=== PATIENT | female | born 1980 | race Caucasian/White ===

== ENCOUNTER → 2017-11-16 | Outpatient (CLI) | payer BC ==
[~2017-11-16] MED LIST: PHEN8TAB; SEASONAL
--- NOTE | 2017-11-16 17:00 | Diagnostic Imaging Report ---
INDICATION: Left knee pain. AP, oblique, and lateral views of the left knee are obtained. No fracture or acute bony abnormality is seen. There is no significant degenerative change. IMPRESSION: Negative left knee. Dictated by: Dictated on workstation # [id number]
== END ==
LOC: RAD 16:22
PROVIDERS: ATTEND Internal Medicine
DX: M25.562 Pain in left knee (principal)
CPT/HCPCS: 73562

== ENCOUNTER → 2017-11-29 | Outpatient (CLI) | payer BC ==
--- NOTE | 2017-11-29 10:37 | Diagnostic Imaging Report ---
PROCEDURE: MRI left joint lower extremity without contrast. TECHNIQUE: Multiplanar, multisequence MR imaging of the left knee was performed without contrast. COMPARISON: Left knee radiographs of 11/16/2017 INDICATION: Knee pain. FINDINGS: MENISCI Medial meniscus: Normal. Lateral meniscus: Normal. LIGAMENTS ACL: The anteromedial bundle of the ACL is discontinuous in its mid aspect. A few of the posterolateral bundle fibers remain intact. These features are compatible with a partial thickness ACL tear. PCL: Mild thickening of the proximal PCL, which remains intact. MCL: Intact. LCL: The lateral collateral ligamentous complex is intact. EXTENSOR MECHANISM The extensor mechanism is intact. CARTILAGE Medial compartment: Medial compartment articular cartilage is well preserved without focal high-grade chondromalacia. Lateral compartment: The lateral compartment articular cartilage is preserved without high-grade chondromalacia. Patellofemoral compartment: Full-thickness chondral fissuring with partial-thickness delamination at the level of the patellar apex. The medial patella facet has multifocal high-grade partial-thickness chondral loss and fissuring as well. Femoral trochlear cartilage is preserved. BONE No fracture, stress fracture or osteonecrosis. SOFT TISSUE No knee effusion or Xiong's cyst. IMPRESSION: 1. Partial-thickness ACL tear. Clinical correlation for ACL integrity is advised. 2. Multifocal partial and full-thickness chondral fissuring of the patellar apex and medial patellar facet. There is a small focus of chondral delamination at the level of the patellar apex as well. Remainder of the articular cartilage is preserved. 3. No meniscal tear. Dictated by: Dictated on workstation # [id number]
== END ==
LOC: RAD 09:22
PROVIDERS: ATTEND Internal Medicine
DX: S83.512A Sprain of anterior cruciate ligament of left knee, initial encounter (principal); S83.242A Other tear of medial meniscus, current injury, left knee, initial encounter; M94.8X8 Other specified disorders of cartilage, other site
CPT/HCPCS: 73721

== ENCOUNTER 2018-02-02 20:24 | Emergency (ER) | payer BC ==
[~2018-02-02] VITALS: Ht 165.1 cm; Wt 90.7 kg
--- OUTSIDE RECORDS SUMMARY | 2018-02-02 20:30 | XMS REPORT | Continuity of Care Document ---
Author Author [facility] Organization [facility] Address Unknown Phone Unavailable Allergies Active Description Code Type Severity Reaction Onset Reported/Identified Relationship to Patient Clinical Status Yes No Known Drug Allergies [id number] Drug Allergy Mild N/A 02/04/2009 Medications There is no data. Problems Date Dx Coded Attending Type Code Diagnosis Diagnosed By 09/13/2014 Ot 368.8 09/13/2014 Ot 473.9 10/08/2014 Ot 368.8 10/08/2014 Ot 473.9 10/08/2014 RAYRAY OLIVEIRA MD Ot 785.6 10/08/2014 RAYRAY OLIVEIRA MD Ot 785.6 11/16/2017 RAYRAY OLIVEIRA MD Ot 785.6 ENLARGEMENT LYMPH NODES 11/17/2017 RAMESH CALZADA DO Ot M25.562 PAIN IN LEFT KNEE 11/30/2017 RAMESH CALZADA DO Ot M94.8X8 OTHER SPECIFIED DISORDERS OF CARTILAGE, 11/30/2017 RAMESH CALZADA DO Ot S83.242A OTH TEAR OF MEDIAL MENISCUS, CURRENT INJ 11/30/2017 RAMESH CALZADA DO Ot S83.512A SPRAIN OF ANTERIOR CRUCIATE LIGAMENT OF 12/06/2017 RAMESH CALZADA DO Ot M25.562 PAIN IN LEFT KNEE 12/10/2017 Ot 368.8 VISUAL DISTURBANCES NEC 12/10/2017 Ot 473.9 CHRONIC SINUSITIS NOS 12/10/2017 RAYRAY OLIVEIRA MD Ot 785.6 ENLARGEMENT LYMPH NODES 12/10/2017 RAMESH CALZADA DO Ot M25.562 PAIN IN LEFT KNEE 12/10/2017 RAMESH CALZADA DO Ot M94.8X8 OTHER SPECIFIED DISORDERS OF CARTILAGE, 12/10/2017 RAMESH CALZADA DO Ot S83.242A OTH TEAR OF MEDIAL MENISCUS, CURRENT INJ 12/10/2017 RAMESH CALZADA DO Ot S83.512A SPRAIN OF ANTERIOR CRUCIATE LIGAMENT OF 12/15/2017 RAMESH CALZADA DO Ot M94.8X8 OTHER SPECIFIED DISORDERS OF CARTILAGE, 12/15/2017 RAMESH CALZADA DO Ot S83.242A OTH TEAR OF MEDIAL MENISCUS, CURRENT INJ 12/15/2017 CALZADAADALBERTO CLINE RAMESH Brett Ot S83.512A SPRAIN OF ANTERIOR CRUCIATE LIGAMENT OF Procedures Code Description Performed By Performed On 51.23 LAPAROSCOPIC CHOLECYSTECTOMY 02/06/2009 Results There is no data. Encounters ACCT No. Visit Date/Time Discharge Status Pt. Type Provider Facility Loc./Unit Complaint [id number] 11/29/2017 09:22:00 11/29/2017 23:59:59 CLS Outpatient RAMESH CALZADA DO [facility] RAD MENISCUS INJURY [id number] 11/16/2017 16:22:00 11/16/2017 23:59:59 CLS Outpatient RAMESH CALZADA DO [facility] RAD M25.562 [id number] 09/14/2014 13:57:00 09/14/2014 23:59:59 CLS Outpatient RAYRAY OLIVEIRA MD [facility] RAD LYMPHADENOPATHY [id number] 12/10/2017 09:19:00 Document Registration [id number] 12/10/2017 09:19:00 Document Registration [id number] 12/10/2017 09:19:00 Document Registration [id number] 12/10/2017 09:19:00 Document Registration [id number] 12/10/2017 09:19:00 Document Registration [id number] 12/10/2017 09:19:00 Document Registration [id number] 10/08/2014 08:42:00 Document Registration [id number] 12/15/2010 09:42:00 Document Registration [id number] 02/05/2009 01:26:00 Document Registration
--- NOTE | 2018-02-02 21:57 | ED Lower Extremity ---
General Chief Complaint: Lower Extremity Stated Complaint: ACL SURGERY 3 WEEKS AGO,PAIN IN CALF Nursing Triage Note: pt states she had ACL reconstruction on January 14. pt states recovery has been uneventful until the last 24 hours. pt states pain has increased in her left calf over the last 24 hours. pt states pain pills are no longer working and the pain is causing nausea. pt also c/o sob. Nursing Sepsis Screen: No Definite Risk Source: patient Exam Limitations: no limitations History of Present Illness Date Seen by Provider: Feb 02, 2018 Time Seen by Provider: 21:51 Initial Comments The patient is a 37-year-old white female who had anterior cruciate ligament repair done [address] [facility]. She saw him last . She reported her pain had been controlled and she was bearing some weight on the leg while using crutches. Today there is been more pain and she feels that her left calf is swollen. Onset: this morning Pain/Injury Location: left leg Allergies and Home Medications Allergies Coded Allergies: No Known Drug Allergies (Unverified , 02/04/09) Patient Home Medication List Home Medication List Reviewed: Yes Constitutional: no symptoms reported EENTM: no symptoms reported Respiratory: no symptoms reported Cardiovascular: no symptoms reported Gastrointestinal: no symptoms reported Genitourinary: no symptoms reported Musculoskeletal: see HPI Skin: no symptoms reported Psychiatric/Neurological: No Symptoms Reported Past Toujwjq-Vykbtc-Fgjkir Hx Patient Social History Alcohol Use: Denies Use Recreational Drug Use: No Recent Foreign Travel: No Contact w/Someone Who Travel: No Recent Infectious Disease Expo: No Recent Hopitalizations: Yes (plurasy while pregant/dehydration with pregancy/ childbirth) Past Medical History Surgeries: Yes (c-sections) Respiratory: Yes (plurasy with ) Cardiac: No Neurological: No Last Menstrual Period: Jan 26, 2018 Reproductive Disorders: No (2 c-sections) Gastrointestinal: Yes (abdominal pain with this admit 02/05/09) Musculoskeletal: Yes (presently torn ACL ) Endocrine: No Psychosocial: Yes Blood Disorders: No Physical Exam Vital Signs Vital Signs - First Documented 02/02/18 20:43 Temp 98.7 Pulse 100 Resp 14 B/P (MAP) 109/68 (82) O2 Delivery Room Air Capillary Refill : Less Than 3 Seconds General Appearance: mild distress HEENT: normal ENT inspection Neck: full range of motion Cardiovascular: normal peripheral pulses, regular rate, rhythm, no edema, no gallop, no JVD, no murmur Respiratory: chest non-tender, lungs clear, normal breath sounds, no respiratory distress, no accessory muscle use Comments There is modest swelling at the knee. She has had an ice pack on it so that he cannot be determined. The calf appears tight but not clearly larger than the other leg. Progress/Results/Core Measures Results/Orders My Orders Orders - DARIELA MOORE MD Ondansetron Oral Dissolve Tab (Zofran O (02/02/18 22:00) Fentanyl Injection (Sublimaze Injection (02/02/18 22:00) Medications Given in ED Current Medications Medications Dose Ordered Sig/Jonas Route Start Time Stop Time Status Last Admin Dose Admin Fentanyl Citrate 50 mcg ONCE ONCE IM 02/02/18 22:00 02/02/18 22:01 DC 02/02/18 22:21 50 MCG Ondansetron Base 8 mg ONCE ONCE PO 02/02/18 22:00 02/02/18 22:01 DC 02/02/18 22:20 8 MG Vital Signs/I&O 02/02/18 20:43 Temp 98.7 Pulse 100 Resp 14 B/P (MAP) 109/68 (82) O2 Delivery Room Air Blood Pressure Mean: 82 Departure Communication (Admissions) 2302 sonogram reported negative for clot by tech Impression Primary Impression: postop pain left knee Disposition: 01 HOME, SELF-CARE Condition: Stable/Unchanged Departure-Patient Inst. Decision time for Depature: 23:03 Referrals: RAMESH CALZADA DO (PCP/Family) Primary Care Physician Patient Instructions: Anterior Cruciate Ligament Tear (DC) Add. Discharge Instructions: All discharge instructions reviewed with patient and/or family. Voiced understanding. Elevate and ice need tonight. Make arrangements to be seen by Dr. Lugo tomorrow DARIELA MOORE MD Feb 02, 2018 21:56
[2018-02-02] MEDS ORDERED: fentaNYL INJECTION 100 MCG/2 ML AMP IM ONE (22:00)
[2018-02-02] MEDS ORDERED: ONDANSETRON 8 MG (ZOFRAN) ORAL DISSOLVE TAB PO ONE (22:00)
[2018-02-02] MEDS ORDERED: fentaNYL INJECTION 100 MCG/2 ML AMP IM PRN (23:15)
[2018-02-02 23:24] VITALS: BP 114/72
--- NOTE | 2018-02-03 07:36 | Diagnostic Imaging Report ---
PROCEDURE: US left lower extremity venous. TECHNIQUE: Multiple real-time grayscale images were obtained over the left lower extremity in various projections. Additional duplex Doppler and color Doppler images were also obtained. INDICATION: Recent ACL surgery. Increasing pain. COMPARISON: None FINDINGS: The left common femoral vein, superficial femoral vein and deep femoral vein and popliteal veins appear patent and compressible without visible thrombus. There is normal augmentation response. Limited visualization of the veins of the calf are also unremarkable. IMPRESSION: No evidence of deep venous thrombosis in the left lower extremity. Agree with [facility] interpretation. Dictated by: Dictated on workstation # [id number]
== END 2018-02-02 23:25 | disposition home or self-care (01) ==
LOC: EDUNIT# 20:24 → ER 20:26
DX: G89.18 Other acute postprocedural pain (principal); M25.562 Pain in left knee; Z87.59 Personal history of other complications of pregnancy, childbirth and the puerperium; Z98.890 Other specified postprocedural states; Z87.2 Personal history of diseases of the skin and subcutaneous tissue
CPT/HCPCS: 96372

== ENCOUNTER 2018-12-01 20:55 | Emergency (ER) | payer BC ==
[~2018-12-01] VITALS: Ht 165.1 cm; Wt 74.8 kg
--- OUTSIDE RECORDS SUMMARY | 2018-12-01 21:00 | XMS REPORT | Continuity of Care Document ---
Author Organization Unknown Address Unknown Allergies Active Description Code Type Severity Reaction Onset Reported/Identified Relationship to Patient Clinical Status Yes No Known Drug Allergies [id number] Drug Allergy Mild N/A 02/04/2009 Medications There is no data. Problems Date Dx Coded Attending Type Code Diagnosis Diagnosed By 09/13/2014 Ot 368.8 09/13/2014 Ot 473.9 10/08/2014 Ot 368.8 10/08/2014 Ot 473.9 10/08/2014 TEE ALVARADO, RAYRAY Granados Ot 785.6 10/08/2014 RAYRAY OLIVEIRA MD Ot [...] M94.8X8 OTHER SPECIFIED DISORDERS OF CARTILAGE, 12/10/2017 ARMESH CALZADA DO Ot S83.242A OTH TEAR OF MEDIAL MENISCUS, CURRENT INJ 12/10/2017 RAMESH CALZADA DO Ot S83.512A SPRAIN OF ANTERIOR CRUCIATE LIGAMENT OF 12/15/2017 ELSI CLINE RAMESH West Ot M94.8X8 OTHER SPECIFIED DISORDERS OF CARTILAGE, 12/15/2017 CALZADA DO RAMESH West Ot S83.242A OTH TEAR OF MEDIAL MENISCUS, CURRENT INJ 12/15/2017 ELSI CLINE RAMESH West Ot S83.512A SPRAIN OF ANTERIOR CRUCIATE LIGAMENT OF 02/02/2018 TEE ALVARADO, RAYRAY M Ot 785.6 ENLARGEMENT LYMPH NODES 02/02/2018 CALZADA DO RAMESH Brett Ot M25.562 PAIN IN LEFT KNEE 02/02/2018 CALZADA DO, RAMESH West Ot M94.8X8 OTHER SPECIFIED DISORDERS OF CARTILAGE, 02/02/2018 CALZADA DO RAMESH West Ot S83.242A OTH TEAR OF MEDIAL MENISCUS, CURRENT INJ 02/02/2018 CALZADA DO RAMESH West Ot S83.512A SPRAIN OF ANTERIOR CRUCIATE LIGAMENT OF 02/02/2018 DARIELA MOORE MD Ot G89.18 OTHER ACUTE POSTPROCEDURAL PAIN 02/02/2018 DARIELA MOORE MD Ot M25.562 PAIN IN LEFT KNEE 02/02/2018 DARIELA MOORE MD Ot M79.604 PAIN IN RIGHT LEG 02/02/2018 DARIELA MOORE MD Ot Z87.2 PERSONAL HISTORY OF DISEASES OF THE SKIN 02/02/2018 DARIELA MOORE MD Ot Z87.59 PERSONAL HISTORY OF COMP OF PREG, CHLDBR 02/02/2018 DARIELA MOORE MD Ot Z98.890 OTHER SPECIFIED POSTPROCEDURAL STATES 02/04/2018 DARIELA MOORE MD Ot G89.18 OTHER ACUTE POSTPROCEDURAL PAIN 02/04/2018 DARIELA MOORE MD Ot M25.562 PAIN IN LEFT KNEE 02/04/2018 DARIELA MOORE MD Ot M79.604 PAIN IN RIGHT LEG 02/04/2018 DARIELA MOORE MD Ot Z87.2 PERSONAL HISTORY OF DISEASES OF THE SKIN 02/04/2018 DARIELA MOORE MD Ot Z87.59 PERSONAL HISTORY OF COMP OF PREG, CHLDBR 02/04/2018 DARIELA MOORE MD Ot Z98.890 OTHER SPECIFIED POSTPROCEDURAL STATES 02/16/2018 Ot 368.8 VISUAL DISTURBANCES NEC 02/16/2018 Ot 473.9 CHRONIC SINUSITIS NOS 02/16/2018 TEE ALVARADO, RAYRAY Granados Ot 785.6 ENLARGEMENT LYMPH NODES 02/16/2018 RAMESH CALZADA DO Ot M25.562 PAIN IN LEFT KNEE 02/16/2018 RAMESH CALZADA DO Ot M94.8X8 OTHER SPECIFIED DISORDERS OF CARTILAGE, 02/16/2018 RAMESH CALZADA DO Ot S83.242A OTH TEAR OF MEDIAL MENISCUS, CURRENT INJ 02/16/2018 RAMESH CALZADA DO Ot S83.512A SPRAIN OF ANTERIOR CRUCIATE LIGAMENT OF 02/16/2018 Ot 368.8 VISUAL DISTURBANCES NEC 02/16/2018 Ot 473.9 CHRONIC SINUSITIS NOS 02/16/2018 TEE ALVARADO, RAYRAY Granados Ot 785.6 ENLARGEMENT LYMPH NODES 02/16/2018 RAMESH CALZADA DO Ot M25.562 PAIN IN LEFT KNEE 05/20/2018 RAYRAY OLIVEIRA MD Ot 785.6 ENLARGEMENT LYMPH NODES 05/20/2018 RAMESH CALZADA DO Ot M25.562 PAIN IN LEFT KNEE 05/20/2018 RAMESH CALZADA DO Ot M94.8X8 OTHER SPECIFIED DISORDERS OF CARTILAGE, 05/20/2018 RAMESH CALZADA DO Ot S83.242A OTH TEAR OF MEDIAL MENISCUS, CURRENT INJ 05/20/2018 RAMESH CALZADA DO Ot S83.512A SPRAIN OF ANTERIOR CRUCIATE LIGAMENT OF 11/18/2018 RAMESH CALZADA DO Ot M94.8X8 OTHER SPECIFIED DISORDERS OF CARTILAGE, 11/18/2018 RAMESH CALZADA DO Ot S83.242A OTH TEAR OF MEDIAL MENISCUS, CURRENT INJ 11/18/2018 RAMESH CALZADA DO Ot S83.512A SPRAIN OF ANTERIOR CRUCIATE LIGAMENT OF 12/01/2018 RAYRAY OLIVEIRA MD Ot 785.6 ENLARGEMENT LYMPH NODES 12/01/2018 RAMESH CALZADA DO Ot M25.562 PAIN IN LEFT KNEE 12/01/2018 RAMESH CALZADA DO Ot M94.8X8 OTHER SPECIFIED DISORDERS OF CARTILAGE, 12/01/2018 RAMESH CALZADA DO Ot S83.242A OTH TEAR OF MEDIAL MENISCUS, CURRENT INJ 12/01/2018 RAMESH CALZADA DO Ot S83.512A SPRAIN OF ANTERIOR CRUCIATE LIGAMENT OF Procedures Code Description Performed By Performed On 51.23 LAPAROSCOPIC CHOLECYSTECTOMY 02/06/2009 Results There is no data. Encounters ACCT No. Visit Date/Time Discharge Status Pt. Type Provider Facility Loc./Unit Complaint [id number] 02/02/2018 20:26:00 02/02/2018 23:25:00 DIS Emergency OSCAR ALVARADO, DARIELA Qiu [facility] ER ACL SURGERY 3 WEEKS AGO, PAIN IN CALF [id number] 11/29/2017 09:22:00 11/29/2017 23:59:59 CLS Outpatient RAMESH CALZADA DO [facility] RAD MENISCUS INJURY [id number] 11/16/2017 16:22:00 11/16/2017 23:59:59 CLS Outpatient RAMESH CALZADA DO [facility] RAD M25.562 [id number] 09/14/2014 13:57:00 09/14/2014 23:59:59 CLS Outpatient TEE ALVARADO, RAYRAY Granados [facility] RAD LYMPHADENOPATHY [id number] 12/01/2018 20:56:00 ACT Emergency SISI ALVARADO, SACHA West [facility] ER CHILLS,BODYACHES [id number] 12/10/2017 09:19:00 Document Registration [id number] 12/10/2017 09:19:00 Document Registration [id number] 12/10/2017 09:19:00 Document Registration [id number] 12/10/2017 09:19:00 Document Registration [id number] 12/10/2017 09:19:00 Document Registration [id number] 12/10/2017 09:19:00 Document Registration [id number] 10/08/2014 08:42:00 Document Registration [id number] 12/15/2010 09:42:00 Document Registration [id number] 02/05/2009 01:26:00 Document Registration
--- NOTE | 2018-12-01 21:09 | ED General ---
General Stated Complaint: CHILLS,BODYACHES Source of Information: Patient Exam Limitations: No Limitations History of Present Illness Date Seen by Provider: Dec 01, 2018 Time Seen by Provider: 21:08 Initial Comments To ER with a 2 day history of generalized body aches, diffuse joint pains and fatigue. Starting about 2 hours ago she began to feel much weaker. She is febrile on arrival at 102.5 but denies any nausea vomiting diarrhea abdominal pain, sore throat runny nose or shortness of breath. Timing/Duration: 1-2 Days Severity: Moderate Associated Systoms: No Cough, No Diaphoresis; Fever/Chills; No Malaise, No Nausea/Vomiting, No Shortness of Air Allergies and Home Medications Allergies Coded Allergies: No Known Drug Allergies (Unverified , 02/04/09) Home Medications Cefuroxime Axetil 500 Mg Tablet, 500 MG PO BID Prescribed by: SHAAN BRIONES on 12/01/18 4589 Patient Home Medication List Home Medication List Reviewed: Yes Review of Systems Review of Systems Constitutional: see HPI EENTM: see HPI Respiratory: no symptoms reported Cardiovascular: no symptoms reported Genitourinary: no symptoms reported Musculoskeletal: see HPI, joint pain Skin: no symptoms reported Psychiatric/Neurological: No Symptoms Reported Hematologic/Lymphatic: No Symptoms Reported Past Fjpuopq-Ulikkr-Wzugzz Hx Patient Social History Recent Foreign Travel: No Contact w/Someone Who Travel: No Recent Hopitalizations: Yes (plurasy while pregant/dehydration with pregancy/ childbirth) Past Medical History Surgeries: Yes (c-sections) Respiratory: Yes (plurasy with ) Cardiac: No Neurological: No Reproductive Disorders: No (2 c-sections) Gastrointestinal: Yes (abdominal pain with this admit 02/05/09) Musculoskeletal: Yes (presently torn ACL ) Endocrine: No Psychosocial: Yes Blood Disorders: No Physical Exam Vital Signs Capillary Refill : Height, Weight, BMI Height: 5'5.00" Weight: 200lbs. oz. 90.611920ys; BMI Method:Estimated General Appearance: No Apparent Distress, WD/WN, Other (alert and oriented GCS 15) Eyes: Bilateral Eye Normal Inspection, Bilateral Eye PERRL, Bilateral Eye EOMI HEENT: PERRL/EOMI, TMs Normal, Pharynx Normal Neck: Full Range of Motion, Normal Inspection; No Lymphadenopathy (L), No Lymphadenopathy (R) Respiratory: No Accessory Muscle Use, No Respiratory Distress Cardiovascular: Regular Rate, Rhythm, Normal Peripheral Pulses Gastrointestinal: Normal Bowel Sounds, Non Tender, Soft Extremity: Normal Capillary Refill, Normal Inspection Neurologic/Psychiatric: Alert, Oriented x3 Skin: Normal Color, Warm/Dry Progress/Results/Core Measures Suspected Sepsis SIRS Temperature: Pulse: Respiratory Rate: Laboratory Tests 12/01/18 21:05: White Blood Count 9.7 Blood Pressure / Mean: Laboratory Tests 12/01/18 21:05: Creatinine 0.84, Platelet Count 350, Total Bilirubin 0.6 Results/Orders Lab Results Laboratory Tests Test 12/01/18 21:05 12/01/18 21:14 Range/Units White Blood Count 9.7 4.3-11.0 10^3/uL Red Blood Count 4.75 4.35-5.85 10^6/uL Hemoglobin 14.0 11.5-16.0 G/DL Hematocrit 40 35-52 % Mean Corpuscular Volume 84 80-99 FL Mean Corpuscular Hemoglobin 30 25-34 PG Mean Corpuscular Hemoglobin Concent 35 32-36 G/DL Red Cell Distribution Width 13.9 10.0-14.5 % Platelet Count 350 130-400 10^3/uL Mean Platelet Volume 9.1 7.4-10.4 FL Neutrophils (%) (Auto) 80 H 42-75 % Lymphocytes (%) (Auto) 12 12-44 % Monocytes (%) (Auto) 5 0-12 % Eosinophils (%) (Auto) 3 0-10 % Basophils (%) (Auto) 1 0-10 % Neutrophils # (Auto) 7.7 1.8-7.8 X 10^3 Lymphocytes # (Auto) 1.2 1.0-4.0 X 10^3 Monocytes # (Auto) 0.5 0.0-1.0 X 10^3 Eosinophils # (Auto) 0.3 0.0-0.3 10^3/uL Basophils # (Auto) 0.1 0.0-0.1 10^3/uL Sodium Level 140 135-145 MMOL/L Potassium Level 3.8 3.6-5.0 MMOL/L Chloride Level 108 H 98-107 MMOL/L Carbon Dioxide Level 19 L 21-32 MMOL/L Anion Gap 13 5-14 MMOL/L Blood Urea Nitrogen 15 7-18 MG/DL Creatinine 0.84 0.60-1.30 MG/DL Estimat Glomerular Filtration Rate > 60 BUN/Creatinine Ratio 18 Glucose Level 89 70-105 MG/DL Calcium Level 9.7 8.5-10.1 MG/DL Corrected Calcium 9.5 8.5-10.1 MG/DL Total Bilirubin 0.6 0.1-1.0 MG/DL Aspartate Amino Transf (AST/SGOT) 19 5-34 U/L Alanine Aminotransferase (ALT/SGPT) 20 0-55 U/L Alkaline Phosphatase 97 40-136 U/L Total Protein 7.6 6.4-8.2 GM/DL Albumin 4.3 3.2-4.5 GM/DL Monoscreen NEGATIVE NEGATIVE Urine Color YELLOW Urine Clarity VERY CLOUDY H Urine pH 6 5-9 Urine Specific [place]ledge 1.015 L 1.016-1.022 Urine Protein 2+ H NEGATIVE Urine Glucose (UA) NEGATIVE NEGATIVE Urine Ketones NEGATIVE NEGATIVE Urine Nitrite POSITIVE H NEGATIVE Urine Bilirubin NEGATIVE NEGATIVE Urine Urobilinogen NORMAL NORMAL MG/DL Urine Leukocyte Esterase 3+ H NEGATIVE Urine RBC (Auto) 2+ H NEGATIVE Urine RBC NONE /HPF Urine WBC >100 H /HPF Urine Squamous Epithelial Cells 10-25 H /HPF Urine Crystals NONE /LPF Urine Amorphous Sediment FEW CLARIBEL URATES H /LPF Urine Bacteria FEW H /HPF Urine Casts NONE /LPF Urine Mucus NEGATIVE /LPF Urine Culture Indicated YES Urine Test NEGATIVE NEGATIVE Micro Results Microbiology 12/01/18 Influenza Types A,B Antigen (SYLVIA) - Final, Complete My Orders Orders - SHAAN BRIONES CUST[employer]S MANAGER Cbc With Automated Diff (12/01/18 21:06) Monotest (12/01/18 21:06) Influenza A And B Antigens (12/01/18 21:06) Chest 1 View, Ap/Pa Only (12/01/18 21:06) Ua Culture If Indicated (12/01/18 21:06) Urine Bedside (12/01/18 21:06) Comprehensive Metabolic Panel (12/01/18 21:06) Ibuprofen Tablet (Motrin Tablet) (12/01/18 21:15) Acetaminophen Tablet (Tylenol Tablet) (12/01/18 21:15) Ns Iv 1000 Ml (Sodium Chloride 0.9%) (12/01/18 21:15) Ct Head Wo (12/01/18 21:12) Csf Cell Count (12/01/18 21:15) Csf Glucose (12/01/18 21:15) Csf Total Protein (12/01/18 21:15) Csf Culture (12/01/18 21:15) Virus Culture (12/01/18 21:15) Hcg,Qualitative Urine (12/01/18 21:24) Urine Culture (12/01/18 21:14) Ceftriaxone For Iv Use (Rocephin For I (12/01/18 22:15) Medications Given in ED Current Medications Medications Dose Ordered Sig/Jonas Route Start Time Stop Time Status Last Admin Dose Admin Acetaminophen 1,000 mg ONCE ONCE PO 12/01/18 21:15 12/01/18 21:16 DC 12/01/18 21:24 1,000 MG Ibuprofen 800 mg ONCE ONCE PO 12/01/18 21:15 12/01/18 21:16 DC 12/01/18 21:24 800 MG Vital Signs/I&O Capillary Refill : Departure Communication (Admissions) 3768-she does definitely have a urinary tract infection despite having no symptoms for this. She states she had a sister with meningitis. She does have some neck pain but this is not worsened with flexion of the neck it just remains present and constant. We have a source of infection I feel that a lumbar puncture is unnecessary given the absence of any neurologic deficits and I discussed this with her. We will treat for the urinary tract infection Impression Primary Impression: Urinary tract infection Qualified Codes: N30.00 - Acute cystitis without hematuria Disposition: 01 HOME, SELF-CARE Condition: Stable Departure-Patient Inst. Decision time for Depature: 22:16 Referrals: RAMESH CALZADA DO (PCP/Family) Primary Care Physician Patient Instructions: Urinary Tract Infection, Adult (DC) Add. Discharge Instructions: 1. Return to ER for any worsening symptoms 2. Antibiotics as directed Scripts Cefuroxime Axetil (Cefuroxime) 500 Mg Tablet 500 MG PO BID, #10 TAB Prov: SHAAN BRIONES APRN 12/01/18 Work/School Note: Work Release Form Date Seen in the Emergency Department: Dec 01, 2018 Return to Work: Dec 03, 2018 SHAAN BRIONES APRN Dec 01, 2018 21:09
[2018-12-01] MEDS ORDERED: IBUPROFEN 800 MG (MOTRIN) TAB PO ONE (21:15)
[2018-12-01] MEDS ORDERED: NS IV 1000 ML 1,000 ML IV SCH (21:15)
[2018-12-01] MEDS ORDERED: ACETAMINOPHEN 500 MG TAB (TYLENOL) PO ONE (21:15)
[2018-12-01 21:26] LABS: BASOPHILS # (AUTO) 0.1 10^3/uL (0.0-0.1); BASOPHILS % (AUTO) 1 % (0-10); EOSINOPHILS # (AUTO) 0.3 10^3/uL (0.0-0.3); EOSINOPHILS % (AUTO) 3 % (0-10); HEMATOCRIT 40 % (35-52); LYMPHOCYTES # (AUTO) 1.2 X 10^3 (1.0-4.0); LYMPHOCYTES % (AUTO) 12 % (12-44); MEAN CORPUSCULAR HEMOGLOBIN 30 PG (25-34); MEAN CORPUSCULAR HGB CONC 35 G/DL (32-36); MEAN CORPUSCULAR VOLUME 84 FL (80-99); MEAN PLATELET VOLUME 9.1 FL (7.4-10.4); MONOCYTES # (AUTO) 0.5 X 10^3 (0.0-1.0); MONOCYTES % (AUTO) 5 % (0-12); NEUTROPHILS # (AUTO) 7.7 X 10^3 (1.8-7.8); NEUTROPHILS % (AUTO) 80 % (42-75); PLATELET COUNT 350 10^3/uL (130-400); RED CELL DISTRIBUTION WIDTH 13.9 % (10.0-14.5); WHITE BLOOD COUNT 9.7 10^3/uL (4.3-11.0)
[2018-12-01 21:26] LABS: BILIRUBIN,URINE NEGATIVE (NEGATIVE); CLARITY,URINE VERY CLOUDY; COLOR,URINE YELLOW; GLUCOSE, URINE (UA) NEGATIVE (NEGATIVE); KETONES,URINE NEGATIVE (NEGATIVE); LEUKOCYTE ESTERASE ,URINE 3+ (NEGATIVE); NITRITE,URINE POSITIVE (NEGATIVE); PH,URINE 6 (5-9); PROTEIN,URINE 2+ (NEGATIVE); UROBILINOGEN,URINE NORMAL (NORMAL)
[2018-12-01 21:38] LABS: ALANINE AMINOTRANSFERASE 20 U/L (0-55); ALBUMIN 4.3 GM/DL (3.2-4.5); ALKALINE PHOSPHATASE 97 U/L (40-136); BILIRUBIN,TOTAL 0.6 MG/DL (0.1-1.0); BUN/CREATININE RATIO 18; CALCIUM 9.7 MG/DL (8.5-10.1); CARBON DIOXIDE 19 MMOL/L (21-32); CHLORIDE 108 MMOL/L (98-107); CREATININE SERUM 0.84 MG/DL (0.60-1.30); GFR ESTIMATED > 60; GLUCOSE 89 MG/DL (70-105); POTASSIUM 3.8 MMOL/L (3.6-5.0); SODIUM 140 MMOL/L (135-145); TOTAL PROTEIN 7.6 GM/DL (6.4-8.2)
[2018-12-01 21:45] LABS: WBC,URINE >100 /HPF
[2018-12-01 21:46] LABS: AMORPHOUS SEDIMENT,UR FEW AMOR URATES /LPF; BACTERIA,URINE FEW /HPF
--- NOTE | 2018-12-01 21:58 | Diagnostic Imaging Report ---
INDICATION: Body aches and chills for two days. FINDINGS: Noncontrast CT scan of the head demonstrates no mass effect, midline shift, hemorrhage or extra-axial fluid collection. Hill-white matter differentiation is normal. The ventricles, cortical sulci and basilar cisterns appear normal. There is complete opacification of the right maxillary sinus. IMPRESSION: 1. Normal intracranial contents. 2. Chronic right maxillary sinusitis. Dictated by: Dictated on workstation # [id number]
--- NOTE | 2018-12-01 21:58 | Diagnostic Imaging Report ---
INDICATION: Bodyaches and chills for 2 days FINDINGS: Frontal view of the chest demonstrates the lungs to be clear. The heart, mediastinum, pulmonary vascularity and visualized bony thorax are normal. IMPRESSION: Negative chest. Dictated by: Dictated on workstation # [id number]
--- NOTE | 2018-12-01 22:09 | NUR ---
Pt's temperature 100.9 at this time
[2018-12-01] MEDS ORDERED: cefTRIAXone FOR IV USE 1,000 MG in WATER (STERILE) FOR INJECTION 10 ML IV ONE (22:15)
[2018-12-01] MEDS ORDERED: CEFU500T63 PO (22:17)
[2018-12-01 23:15] VITALS: BP 117/68
== END 2018-12-01 23:15 | disposition home or self-care (01) ==
LOC: EDUNIT# 20:55 → ER 20:56
DX: N39.0 Urinary tract infection, site not specified (principal); Z98.890 Other specified postprocedural states
CPT/HCPCS: 36415; 70450; 71045; 80053; 81000; 84703; 85025; 86308; 87077; 87088; 87186; 87804

== ENCOUNTER 2023-06-11 23:13 | Emergency (ER) | payer BC ==
[~2023-06-11] VITALS: Ht 162.6 cm; Wt 72.0 kg
[~2023-06-11 23:13] MED LIST changes: +CEFU500T63 PO
[2023-06-11 23:20] VITALS: BP 121/76
[2023-06-11 23:44] LABS: BASOPHILS # (AUTO) 0.1 10^3/uL (0.0-0.1); BASOPHILS % (AUTO) 1 % (0-10); EOSINOPHILS # (AUTO) 0.4 10^3/uL (0.0-0.3); EOSINOPHILS % (AUTO) 4 % (0-10); HEMATOCRIT 42 % (35-52); HEMOGLOBIN 14.5 g/dL (11.5-16.0); LYMPHOCYTES # (AUTO) 3.3 10^3/uL (1.0-4.0); LYMPHOCYTES % (AUTO) 35 % (12-44); MEAN CORPUSCULAR HEMOGLOBIN 31 pg (25-34); MEAN CORPUSCULAR HGB CONC 34 g/dL (32-36); MEAN CORPUSCULAR VOLUME 90 fL (80-99); MEAN PLATELET VOLUME 8.7 fL (9.0-12.2); MONOCYTES # (AUTO) 0.8 10^3/uL (0.0-1.0); MONOCYTES % (AUTO) 8 % (0-12); NEUTROPHILS # (AUTO) 4.9 10^3/uL (1.8-7.8); NEUTROPHILS % (AUTO) 52 % (42-75); PLATELET COUNT 346 10^3/uL (130-400); WHITE BLOOD COUNT 9.5 10^3/uL (4.3-11.0)
[2023-06-11] MEDS ORDERED: LACTATED RINGERS 1,000 ML 1,000 ML IV ONE (23:45)
[2023-06-11 23:50] LABS: ALBUMIN 4.4 GM/DL (3.2-4.5); POTASSIUM 3.6 MMOL/L (3.6-5.0)
[2023-06-11 23:51] LABS: CALCIUM 9.1 MG/DL (8.5-10.1)
[2023-06-11 23:53] LABS: PROTHROMBIN TIME PATIENT 13.5 SEC (12.2-14.7); TOTAL PROTEIN 7.7 GM/DL (6.4-8.2)
[2023-06-11 23:54] LABS: BILIRUBIN,TOTAL 0.6 MG/DL (0.1-1.0)
[2023-06-11 23:56] LABS: CREATININE SERUM 0.74 MG/DL (0.60-1.30)
[2023-06-11 23:59] LABS: MAGNESIUM 2.1 MG/DL (1.6-2.4)
[2023-06-12 00:03] LABS: ERYTHROCYTE SEDIMENTATION RATE 6 MM/HR (0-20)
[2023-06-12] MEDS ORDERED: KETOROLAC INJ 30 MG/ML VIAL IVP STA (00:22)
[2023-06-12] MEDS ORDERED: LACTATED RINGERS 1,000 ML 1,000 ML IV ONE (00:30)
[2023-06-12] MEDS ORDERED: HOLD METFORMIN - RECEIVED CONTRAST 20 ML VIAL IV SCH (02:00)
[2023-06-12] MEDS ORDERED: CATHETER FLUSH 10 ML SYR IV PRN (02:00)
[2023-06-12] MEDS ORDERED: IOHEXOL 350 MG/ML 100 ML (OMNIPAQUE 350) VIAL IV ONE (02:00)
[2023-06-12] MEDS ORDERED: NS 100 ML (IVPB) BAG IV ONE (02:00)
[2023-06-12] MEDS ORDERED: BUTA-249 PO (02:25)
[2023-06-12] MEDS ORDERED: ONDA4TAB11 PO (02:25)
[2023-06-12] MEDS ORDERED: KETO10TA PO (02:25)
--- NOTE | 2023-06-12 02:25 | ED Headache ---
General Chief Complaint: Head/Cervical Problems Stated Complaint: [facility] Nursing Triage Note: Pt presents with c/o headache that started at approx 1630 this evening. She reports trying to eat to make it go away, she states she had a loss of boardmarker strength in L hand, and got dizzy when going to take a shower. Source: patient History of Present Illness Date Seen by Provider: Jun 11, 2023 Allergies and Home Medications Allergies Coded Allergies: No Known Drug Allergies (Unverified , 02/04/09) Patient Home Medication List Butalb/Acetaminophen/Caffeine (Esgic 50-325-40 mg Tablet) 50 Mg-325 Mg-40 Mg Tablet, 1-2 EACH PO Q6 Prescribed by: BILL DAVIS on 06/12/23224 Cefuroxime Axetil (Cefuroxime) 500 Mg Tablet, 500 MG PO BID Prescribed by: SHAAN BRIONES on 12/01/182216 Ketorolac Tromethamine (Ketorolac Tromethamine) 10 Mg Tablet, 10 MG PO Q6H Prescribed by: BILL DAVIS on 06/12/23224 Ondansetron (Ondansetron Odt) 4 Mg Tab.rapdis, 4 MG PO Q4H Prescribed by: BILL DAVIS on 06/12/23224 Phentermine Hcl (Phentermine Hcl) 8 Mg Tablet, (Reported) Entered as Reported by: MARGAUX LINTON on 02/04/09 2245 [Seasonal] , (Reported) Entered as Reported by: MAYLIN MORTENSEN on 02/05/09 0238 Past Wkzigvo-Rqufdd-Intmhi Hx Past Medical History Surgeries: Yes (c-sections) Respiratory: Yes (plurasy with ) Cardiac: No Neurological: No Reproductive Disorders: No (2 c-sections) Gastrointestinal: Yes (abdominal pain with this admit 02/05/09) Musculoskeletal: Yes (presently torn ACL ) Endocrine: No Psychosocial: Yes Blood Disorders: No Physical Exam Vital Signs Vital Signs - First Documented 06/11/23 23:20 Temp 37.7 Pulse 86 Resp 16 B/P (MAP) 121/76 (91) Capillary Refill : Less Than 3 Seconds Height, Weight, BMI Height: 5'5.00" Weight: 165lbs. oz. [id number]; 27.00 BMI Method:Stated Progress/Results/Core Measures Results/Orders Lab Results Laboratory Tests Test 06/11/23 23:30 Range/Units White Blood Count 9.5 4.3-11.0 10^3/uL Red Blood Count 4.71 3.80-5.11 10^6/uL Hemoglobin 14.5 11.5-16.0 g/dL Hematocrit 42 35-52 % Mean Corpuscular Volume 90 80-99 fL Mean Corpuscular Hemoglobin 31 25-34 pg Mean Corpuscular Hemoglobin Concent 34 32-36 g/dL Red Cell Distribution Width 12.4 10.0-14.5 % Platelet Count 346 130-400 10^3/uL Mean Platelet Volume 8.7 L 9.0-12.2 fL Immature Granulocyte % (Auto) 0 % Neutrophils (%) (Auto) 52 42-75 % Lymphocytes (%) (Auto) 35 12-44 % Monocytes (%) (Auto) 8 0-12 % Eosinophils (%) (Auto) 4 0-10 % Basophils (%) (Auto) 1 0-10 % Neutrophils # (Auto) 4.9 1.8-7.8 10^3/uL Lymphocytes # (Auto) 3.3 1.0-4.0 10^3/uL Monocytes # (Auto) 0.8 0.0-1.0 10^3/uL Eosinophils # (Auto) 0.4 H 0.0-0.3 10^3/uL Basophils # (Auto) 0.1 0.0-0.1 10^3/uL Immature Granulocyte # (Auto) 0.0 0.0-0.1 10^3/uL Erythrocyte Sedimentation Rate 6 0-20 MM/HR Prothrombin Time 13.5 12.2-14.7 SEC INR Comment 1.0 0.8-1.4 Activated Partial Thromboplast Time 29 24-35 SEC Sodium Level 138 135-145 MMOL/L Potassium Level 3.6 3.6-5.0 MMOL/L Chloride Level 107 98-107 MMOL/L Carbon Dioxide Level 22 21-32 MMOL/L Anion Gap 9 5-14 MMOL/L Blood Urea Nitrogen 18 7-18 MG/DL Creatinine 0.74 0.60-1.30 MG/DL Estimat Glomerular Filtration Rate 105 BUN/Creatinine Ratio 24 Glucose Level 86 70-105 MG/DL Calcium Level 9.1 8.5-10.1 MG/DL Corrected Calcium 8.8 8.5-10.1 MG/DL Magnesium Level 2.1 1.6-2.4 MG/DL Total Bilirubin 0.6 0.1-1.0 MG/DL Aspartate Amino Transf (AST/SGOT) 128 H 5-34 U/L Alanine Aminotransferase (ALT/SGPT) 65 H 0-55 U/L Alkaline Phosphatase 59 40-136 U/L C-Reactive Protein High Sensitivity 0.04 0.00-0.50 MG/DL Total Protein 7.7 6.4-8.2 GM/DL Albumin 4.4 3.2-4.5 GM/DL Serum Test, Qualitative NEGATIVE NEGATIVE My Orders Orders - BILL DAVIS DO Ed Iv/Invasive Line Start (06/11/23 23:38) Monitor-Rhythm Ecg Trace Only (06/11/23 23:38) Ct Head Wo-R/O Stroke (06/11/23 23:38) Cbc And Automated Diff (06/11/23 23:38) Comprehensive Metabolic Panel (06/11/23 23:38) Hs C Reactive Protein (06/11/23 23:38) Hcg,Qualitative Serum (06/11/23 23:38) Magnesium (06/11/23 23:38) Protime With Inr (06/11/23 23:38) Partial Thromboplastin Time (06/11/23 23:38) Erythrocyte Sedimentation Rate (06/11/23 23:38) Ed Iv/Invasive Line Start (06/11/23 23:38) Lactated Ringers 1,000 Ml (Lactated Ring (06/11/23 23:45) Covid 19 Inhouse Test (06/11/23 23:38) Influenza A And B By Pcr (06/11/23 23:38) Ct Angio Head/Neck (06/12/23 00:22) Lactated Ringers 1,000 Ml (Lactated Ring (06/12/23 00:30) Ketorolac Injection (Ketorolac Injection (06/12/23 00:22) Ed Iv/Invasive Line Start (06/12/23 00:22) Iohexol Injection (Omnipaque 350 Mg/Ml 1 (06/12/23 02:00) Received Contrast (Hold Metformin- Contr (06/12/23 02:00) Sodium Chloride Flush (Catheter Flush Sy (06/12/23 02:00) Ns (Ivpb) 100 Ml (Sodium Chloride 0.9% 1 (06/12/23 02:00) Orphenadrine Inj (Ed Only) (Orphenadrine (06/12/23 02:30) Prochlorperazine Injection (Prochlorpera (06/12/23 02:30) Diphenhydramine Injection (Diphenhydram (06/12/23 02:30) Medications Given in ED Current Medications Medications Dose Ordered Sig/Jonas Route Start Time Stop Time Status Last Admin Dose Admin Iohexol 100 ml ONCE ONCE IV 06/12/23 02:00 06/12/23 02:01 DC 06/12/23 01:57 75 ML Lactated Ringer's 1,000 ml @ 0 mls/hr Q0M ONCE IV 06/11/23 23:45 06/11/23 23:46 DC 06/12/23 00:13 0 MLS/HR Lactated Ringer's 1,000 ml @ 0 mls/hr Q0M ONCE IV 06/12/23 00:30 06/12/23 00:31 DC 06/12/23 01:19 0 MLS/HR Sodium Chloride 10 ml NEEDED PRN IV 06/12/23 02:00 06/12/23 01:57 10 ML Sodium Chloride 100 ml ONCE ONCE IV 06/12/23 02:00 06/12/23 02:01 DC 06/12/23 01:57 80 ML Vital Signs/I&O 06/11/23 23:20 Temp 37.7 Pulse 86 Resp 16 B/P (MAP) 121/76 (91) Blood Pressure Mean: 91 Departure Impression Primary Impression: Headache Additional Impression: Tension type headache Disposition: 01 HOME, SELF-CARE Condition: Stable Departure-Patient Inst. Decision time for Depature: 02:23 Referrals: RAMESH CALZADA DO (PCP/Family) Primary Care Physician Patient Instructions: Headache, Adult (DC), Tension Headache (DC) Add. Discharge Instructions: HOME, REST LOTS OF CLEAR LIQUIDS FOLLOW UP WITH YOUR DR ON WEDNESDAY IF NO BETTER, RETURN TO ER IF WORSE All discharge instructions reviewed with patient and/or family. Voiced understanding. Scripts Cyclobenzaprine HCl (Cyclobenzaprine HCl) 10 Mg Tablet 10 MG PO Q8H PRN for SPASMS, #15 TAB 0 Refills Prov: BILL DAVIS DO 06/12/23 Ondansetron (Ondansetron Odt) 4 Mg Tab.rapdis 4 MG PO Q4H for Nausea/Vomiting, #10 TAB Prov: BILL DAVIS DO 06/12/23 Butalb/Acetaminophen/Caffeine (Esgic 50-325-40 mg Tablet) 50 Mg-325 Mg-40 Mg Tablet 1-2 EACH PO Q6, #12 TAB Prov: BILL DAVIS DO 06/12/23 Ketorolac Tromethamine (Ketorolac Tromethamine) 10 Mg Tablet 10 MG PO Q6H for Pain, #15 TAB Prov: BILL DAVIS DO 06/12/23 BILL DAVIS DO Jun 12, 2023 02:25
[2023-06-12] MEDS ORDERED: CYCL10TA25 PO (02:26)
[2023-06-12] MEDS ORDERED: PROCHLORPERAZINE INJ 10 MG/2ML VIAL IV ONE (02:30)
[2023-06-12] MEDS ORDERED: diphenhydrAMINE INJ 50 MG/ML VIAL IVP ONE (02:30)
[2023-06-12] MEDS ORDERED: ORPHENADRINE 60 MG/2 ML AMP (ED ONLY) IV ONE (02:30)
--- NOTE | 2023-06-12 06:59 | Diagnostic Imaging Report ---
PROCEDURE: CT head wo r/o stroke. TECHNIQUE: Multiple contiguous axial images were obtained through the brain without the use of intravenous contrast. Auto Exposure Controls were utilized during the CT exam to meet ALARA standards for radiation dose reduction. INDICATION: Headache. FINDINGS: The ventricles and sulci are within normal limits. No hydrocephalus. No midline shift. No mass, hemorrhage or extra-axial fluid collection. There are no territorial areas of ischemia. The calvarium is intact. Sinuses and mastoid air cells are clear. IMPRESSION: No acute intracranial abnormality. Findings were conveyed to the stroke physician at 0009 hours per the [employer] report. Dictated by: Dictated on workstation # [id number]
--- NOTE | 2023-06-12 07:05 | Diagnostic Imaging Report ---
PROCEDURE: CT angiography of the head and CT angiography of the neck with and without contrast. TECHNIQUE: Contiguous noncontrast images were obtained from the skull base through the vertex. After intravenous contrast administration, helical CT angiography of the neck was performed. Source data was reformatted into 3D MIP projections. Delayed post contrast acquisition was also obtained. Auto Exposure Controls were utilized during the CT exam to meet ALARA standards for radiation dose reduction. INDICATION: Headache. Left-sided weakness. COMPARISON: CT head without contrast 06/11/2023. FINDINGS: Head CT: The brain parenchyma is normal in attenuation. No intra- or extra-axial mass or fluid collection. No hyperdense intracranial hemorrhage. The ventricles are normal in size and configuration without midline shift. There is normal billings-white matter differentiation. The subarachnoid cisterns are patent. The visualized paranasal sinuses are well aerated. The mastoid air cells are clear. The visualized portions of the orbits are normal. No aggressive osseous lesion or fracture. CTA Head: The visualized distal internal carotid arteries, anterior and middle cerebral arteries are patent and normal caliber. The distal vertebral arteries, basilar artery, and posterior cerebral arteries are patent and normal caliber. No intracranial dissection, aneurysm, or arteriovenous malformation is seen. IMPRESSION: CTA NECK FINDINGS: Right vertebral : The right vertebral origin has no stenosis. The cervical right vertebral is normal. The intracranial right vertebral artery is normal. No dissection of the right vertebral artery. Left vertebral : The left vertebral origin has no stenosis. The cervical left vertebral is normal. The intracranial left vertebral artery is normal. No dissection of the left vertebral artery. Right CCA/ICA: No significant stenosis of the right CCA. There is no stenosis of the right ICA per NASCET criteria. No dissection of right carotid system. Left CCA/ICA: No significant stenosis of the left CCA. There is no stenosis of the left ICA per NASCET criteria. No dissection of the left carotid system. Visualized intracranial arteries show no large artery occlusion or cerebral aneurysm. The visualized aerodigestive tract is normal. No pathologic cervical lymphadenopathy by size criteria. No acute soft tissue abnormality. The thyroid is normal. No acute osseous abnormality of the cervical spine. The visualized lung apices are clear. Impression: No dissection or stenosis of either cervical ICA per NASCET criteria. No dissection or significant stenosis of either cervical vertebral artery. No intracranial dissection or aneurysm. No arterial stenosis or occlusion. Dictated by: Dictated on workstation # [id number]
== END 2023-06-12 03:02 | disposition home or self-care (01) ==
LOC: EDUNIT# 23:13 → ER 23:16
DX: G44.209 Tension-type headache, unspecified, not intractable (principal); Z20.822 Contact with and (suspected) exposure to COVID-19
CPT/HCPCS: 36415; 70450; 70496; 70498; 80053; 83735; 84703; 85025; 85610; 85652; 85730; 86141; 93041; 96374; 96375